=== PATIENT | male | born 1995 | race Caucasian/White ===

== ENCOUNTER 2024-07-07 12:34 | Inpatient (IN) | payer BC ==
[~2024-07-07] VITALS: Ht 172.7 cm; Wt 117.9 kg
[2024-07-07 13:13] LABS: BASOPHILS % (AUTO) 0.6 % (0.0-2.0); EOSINOPHILS # (AUTO) 0.1 K/uL (0.0-0.7); EOSINOPHILS % (AUTO) 2.3 % (0.0-6.0); HEMATOCRIT 47 % (39-51); HEMOGLOBIN 15.4 g/dL (13.5-17.5); LYMPHOCYTES # (AUTO) 1.2 K/uL (0.8-4.8); MEAN CORPUSCULAR HEMOGLOBIN 29 PG (26.0-33.0); MEAN CORPUSCULAR HGB CONC 33 g/dl (31.0-36.0); MEAN CORPUSCULAR VOLUME 87 fL (80-96); MONOCYTES # (AUTO) 0.6 K/uL (0.1-1.30); MONOCYTES % (AUTO) 9.9 % (2.0-12.0); NEUTROPHILS # (AUTO) 4.3 K/uL (1.8-8.9); NEUTROPHILS % (AUTO) 68.2 % (43.0-81.0); PLATELET COUNT (AUTO) 246 K/uL (150-450); RED BLOOD CELL COUNT(AUTO) 5.33 MIL/uL (4.5-6.0); RED CELL DISTRIBUTION WIDTH 14.7 % (11.5-15.0); WHITE BLOOD COUNT (AUTO) 6.4 K/uL (4.3-11.0)
[2024-07-07 13:21] LABS: CALCIUM, SERUM 9.3 mg/dL (8.5-10.1); CREATININE 1.3 mg/dL (0.6-1.3); POTASSIUM 4.3 mmol/L (3.5-5.1)
[2024-07-07] MEDS ORDERED: ONDANSETRON HCL/PF 4 MG/2 ML VIAL ONE (13:32)
[2024-07-07 13:35] LABS: ALBUMIN 4.3 g/dL (3.4-5.0); BILIRUBIN,DIRECT 0.1 mg/dL (0.0-0.2); BILIRUBIN,TOTAL 0.5 mg/dL (0.2-1.0); TOTAL PROTEIN, SERUM 7.9 g/dL (6.4-8.2)
[2024-07-07] MEDS: ONDANSETRON HCL/PF 4 MG/2 ML VIAL IVP ONE (13:36)
[2024-07-07] MEDS: IV NS 0.9% 1,000 ML BAG IV ONE (13:36)
[2024-07-07] MEDS ORDERED: TRANEXAMIC ACID 1,000 MG/10 ML VIAL ONE (14:16)
[2024-07-07] MEDS ORDERED: EPINEPHRINE (1:1000) 1 MG/ML AMPUL ONE (14:16)
[2024-07-07] MEDS ORDERED: diphenhydrAMINE HCL 50 MG/ML VIAL ONE (14:17)
[2024-07-07] MEDS ORDERED: methylPREDNISolone SOD SUCC 125 MG/2ML VIAL ONE (14:17)
[2024-07-07] MEDS ORDERED: FAMOTIDINE/PF INJ 20 MG/2 ML VIAL IV ONE (14:18)
[2024-07-07] MEDS: EPINEPHRINE (1:1000) 1 MG/ML AMPUL SUBCUT ONE (14:25)
[2024-07-07] MEDS: methylPREDNISolone SOD SUCC 125 MG/2ML VIAL IV ONE (14:29)
[2024-07-07] MEDS: diphenhydrAMINE HCL 50 MG/ML VIAL IV ONE (14:29)
[2024-07-07] MEDS: FAMOTIDINE/PF INJ 20 MG/2 ML VIAL IV ONE (14:30)
[2024-07-07] MEDS: TRANEXAMIC ACID 1,000 MG in IV NS 0.9% 50 ML IV ONE (14:43)
[2024-07-07] MEDS ORDERED: [UNRECOGNIZED DRUG - OTHER] PO (16:36)
[2024-07-07] MEDS ORDERED: DIME50TA26 PO (16:36)
[2024-07-07] MEDS ORDERED: IBUP-2715 PO (16:36)
[2024-07-07] MEDS ORDERED: [UNRECOGNIZED DRUG - OTHER] PO (16:36)
[2024-07-07] MEDS ORDERED: ZEPBOUND SQ (16:36)
[2024-07-07] MEDS ORDERED: OMEP20CA15 PO (16:36)
[2024-07-07] MEDS ORDERED: CHOL500062 PO (16:36)
[2024-07-07] MEDS ORDERED: FAMO20TA8 PO (16:36)
[2024-07-07] MEDS ORDERED: [UNRECOGNIZED DRUG - OTHER] PO (16:36)
[2024-07-07] MEDS ORDERED: OXY PO (16:36)
[2024-07-07] MEDS ORDERED: ONDA-97 PO (16:36)
[2024-07-07] MEDS ORDERED: CLON1TAB12 PO (16:36)
[2024-07-07] MEDS ORDERED: VORT20TA PO (16:36)
[2024-07-07] MEDS ORDERED: ACETAMINOPHEN 325 MG TABLET PO PRN (17:00)
[2024-07-07] MEDS ORDERED: ONDANSETRON HCL/PF 4 MG/2 ML VIAL IVP PRN (17:00)
[2024-07-07] MEDS: IV NS 0.9% 1,000 ML IV PRN (19:51)
[2024-07-07 20:00] VITALS: BP 128/83; TEMP 98.2
[2024-07-07] MEDS: FAMOTIDINE/PF INJ 20 MG/2 ML VIAL IV SCH (20:41)
[2024-07-07] MEDS: methylPREDNISolone SOD SUCC 40 MG/ML VIAL IV SCH (20:41)
[2024-07-07] MEDS: DIPHENHYDRAMINE HCL 12.5 MG/5 ML UDC PO SCH (21:04)
[2024-07-08] VITALS: BP 107/56; TEMP 98.1; O2SAT 95
[2024-07-08 04:00] VITALS: BP 121/70; TEMP 97.3; O2SAT 96
[2024-07-08 08:00] VITALS: BP 115/57; TEMP 97.7; O2SAT 96
[2024-07-08 08:43] LABS: BASOPHILS % (AUTO) 0.1 % (0.0-2.0); HEMATOCRIT 41 % (39-51); HEMOGLOBIN 13.9 g/dL (13.5-17.5); LYMPHOCYTES # (AUTO) 0.7 K/uL (0.8-4.8); LYMPHOCYTES % (AUTO) 6.3 % (20.0-44.0); MEAN CORPUSCULAR HEMOGLOBIN 29 PG (26.0-33.0); MEAN CORPUSCULAR HGB CONC 34 g/dl (31.0-36.0); MEAN CORPUSCULAR VOLUME 86 fL (80-96); MONOCYTES # (AUTO) 0.4 K/uL (0.1-1.30); MONOCYTES % (AUTO) 3.9 % (2.0-12.0); NEUTROPHILS # (AUTO) 9.7 K/uL (1.8-8.9); NEUTROPHILS % (AUTO) 89.7 % (43.0-81.0); PLATELET COUNT (AUTO) 233 K/uL (150-450); RED CELL DISTRIBUTION WIDTH 14.3 % (11.5-15.0); WHITE BLOOD COUNT (AUTO) 10.8 K/uL (4.3-11.0)
[2024-07-08 09:01] LABS: CALCIUM, SERUM 9.2 mg/dL (8.5-10.1); CREATININE 0.9 mg/dL (0.6-1.3); PHOSPHORUS 2.4 mg/dL (2.5-4.9); POTASSIUM 4.3 mmol/L (3.5-5.1)
[2024-07-08] MEDS ORDERED: EPIN0.3P3 IM (10:31)
== END 2024-07-08 12:21 | disposition home or self-care (01) | DRG 916 ==
LOC: ER 12:45 → TELE-TD 18:04 → MEDSG1 07-08 09:35
PROVIDERS: ADMIT Nurse Practitioner Acute Care; ATTEND Nurse Practitioner Acute Care
DX: T78.3XXA Angioneurotic edema, initial encounter (principal); F32.A Depression, unspecified; F41.9 Anxiety disorder, unspecified; K59.00 Constipation, unspecified; K76.0 Fatty (change of) liver, not elsewhere classified; R74.01 Elevation of levels of liver transaminase levels; F12.288 Cannabis dependence with other cannabis-induced disorder; T43.3X5A Adverse effect of phenothiazine antipsychotics and neuroleptics, initial encounter; Y92.9 Unspecified place or not applicable; R73.03 Prediabetes; Z79.899 Other long term (current) drug therapy
CPT/HCPCS: 36415; 80048-TC; 80061-TC; 80076-TC; 83690-TC; 83735-TC; 84100-TC; 85025-TC; G0378; J0171; J1200; J2405; J2919; J3490; J7030; Q0163